=== PATIENT | male | born 1985 | race Caucasian/White ===

== ENCOUNTER 2021-03-14 19:51 | Emergency (ER) | payer SELFPAY ==
[~2021-03-14] VITALS: Ht 167.6 cm; Wt 59.0 kg
--- NOTE | 2021-03-14 19:54 | NUR ---
PT BROUGHT TO BED 1 VIA [facility]AD[facility]IN SNIDER
[2021-03-14 20:00] VITALS: BP 144/89
[2021-03-14 20:04] VITALS: BP 144/89
--- NOTE | 2021-03-14 20:14 | NUR ---
pt is not in room. security called, looking for pt.
== END 2021-03-14 20:14 | disposition home or self-care (01) ==
LOC: MED 20:07
DX: R41.82 Altered mental status, unspecified (principal)
CPT/HCPCS: 99281

== ENCOUNTER 2022-04-19 11:05 | Emergency (ER) | payer MEDICAID ==
[~2022-04-19] VITALS: Ht 167.6 cm; Wt 82.6 kg
[2022-04-19 11:12] VITALS: BP 127/93
--- NOTE | 2022-04-19 12:05 | NUR ---
RECIEVED VERBAL ORDER FOR STRAIGHT CATH, PT NOTED TO BE CHEWING ON URINAL PROVIDED
--- NOTE | 2022-04-19 12:07 | NUR ---
# 14 FR Urinary catheter inserted utilizing sterile technique. Immediate return of 50 ml CLEAR TONIA urine noted. Urine sample collected and sent to lab. Pt tolerated procedure WELL.
--- NOTE | 2022-04-19 12:17 | NUR ---
JOAN FROM STREETS, PER EMS PT WAS RUNNING AWAY FROM POLICE WHEN EMS WAS ACTIVATED AND PT NOTED TO BE CONFUSED, NOT ANSWERING ANY QUESTIONS, PT NOTED TO BE A/OX1. ABLE TO ANSWER NAME, STATES THAT HE IS IN [place] AND THE DATE IS "" NO MONTH, VERBALLY RESPONSIVE, DENIES ANY DRUG OR ALCOHOL USE. NO FACIAL OR ORAL TRAUMA NOTED, LESLI [facility]: DENIES
[2022-04-19 12:40] LABS: BARBITURATE, URINE NEGATIVE ng/ml (NEG <=200); BENZODIAZEPINE, URINE NEGATIVE ng/mL (NEG <=200); CANNABINOID, URINE POSITIVE ng/mL (NEG <=50); COCAINE, URINE NEGATIVE ng/mL (NEG <=300)
[2022-04-19 12:41] LABS: OPIATE, URINE NEGATIVE ng/mL (NEG <=2000); PHENCYCLIDINE SCREEN,URINE NEGATIVE ng/mL (NEG <=25)
--- NOTE | 2022-04-19 14:17 | NUR ---
PT AMBULATED WITH STEADY GAIT, A/OX3, DR MCCLELLAND MADE AWARE
--- NOTE | 2022-04-19 14:19 | NUR ---
Patient discharged with v/s stable. Written and verbal after care instructions given and explained. Patient verbalized understanding. Ambulatory with steady gait. All questions addressed prior to discharge. Advised to follow up with PMD.
== END 2022-04-19 14:19 | disposition home or self-care (01) ==
LOC: MED 11:05
DX: F12.10 Cannabis abuse, uncomplicated (principal); F15.10 Other stimulant abuse, uncomplicated; R41.0 Disorientation, unspecified; F17.200 Nicotine dependence, unspecified, uncomplicated
CPT/HCPCS: 80305; 99283